=== PATIENT | male | born 1995 | race Caucasian/White ===

== ENCOUNTER 2017-03-09 12:45 | Emergency (ER) ==
[2017-03-09 12:48] VITALS: BP 117/74; TEMP 97.9; BMI 17.8
[2017-03-09] MEDS ORDERED: SILVADENE CREAM TP STA (13:04)
[2017-03-09] MEDS ORDERED: TORADOL IM STA (13:04)
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
== END 2017-03-09 13:39 | disposition home or self-care (01) ==
LOC: ED 12:45
DX: T24.202A Burn of second degree of unspecified site of left lower limb, except ankle and foot, initial encounter (principal); T24.201A Burn of second degree of unspecified site of right lower limb, except ankle and foot, initial encounter; X10.1XXA Contact with hot food, initial encounter
CPT/HCPCS: 96372; 99282

== ENCOUNTER 2017-04-09 07:26 | Day surgery (SDC) ==
[~2017-04-09 07:26] MED LIST: LIDOCAINE 1% 20 ML MDV ONE; LIDOCAINE 1% 2ML (SURGERY ONLY) ID ONE
[2017-04-09] MEDS ORDERED: DIPRIVAN 20 ML VIAL IVP ONE (09:20)
[2017-04-09] MEDS ORDERED: SUBLIMAZE ONE (09:20)
[2017-04-09] MEDS ORDERED: VERSED ONE (09:20)
[2017-04-09] MEDS ORDERED: LIDOCAINE 1%-EPI 1:100,000 10 ML (SURGERY) INJ ONE (09:39)
[2017-04-09] MEDS ORDERED: NEOSPORIN OINT 0.9 GM PACKET TP ONE (09:41)
[2017-04-09] MEDS ORDERED: GELFOAM SIZE 50 TP ONE (09:42)
[2017-04-09] MEDS ORDERED: TYLENOL #3 TAB PO ONE (10:22)
[2017-04-09 11:21] VITALS: BP 102/75; TEMP 97.3
--- NOTE | 2017-04-10 12:58 | OP ---
PREOPERATIVE DIAGNOSIS: RIGHT TYMPANIC MEMBRANE PERFORATION POSTOPERATIVE DIAGNOSIS: RIGHT TYMPANIC MEMBRANE PERFORATION OPERATION: RIGHT TYPE 1 TYMPANOPLASTY PROCEDURE: The patient was taken to surgery, placed on the table and general anesthesia was administered. Left ear was inspected and noticed an anterior superior perforation which is not significant. Attention was then turned to the right where the ear was prepped and draped in the usual manner. 1% Xylocaine to 100,000 Epinephrine was injected into the external ear canal. Xylocaine and Epinephrin was injected in the tragus. A tragal perichondrial graft was obtained. The cartilage was placed back in the graft site and incision closed using interrupted 6-0 Chromic suture. The edges of the perforation were freshened up with a straight pick and then a tympanomeatal flap was created between approximately 9 and 3 o'clock. Dissection was carried down the annulus and the annulus was elevated. The middle ear was filled with pledgets of Gelfoam. The perichondrial graft was cut to proper size and laid on the tympanic membrane. The annulus was placed back in its anatomical position and the graft was tucked up against the surface of the drum. Gelfoam was placed against the surface of the drum. Ear canal was filled with antibiotic ointment and the patient was extubated and return the recovery room in satisfactory condition. MARIO
== END 2017-04-09 11:30 | disposition home or self-care (01) ==
LOC: SURG 07:26
PROVIDERS: ATTEND Otolaryngology
DX: H72.91 Unspecified perforation of tympanic membrane, right ear (principal); F17.210 Nicotine dependence, cigarettes, uncomplicated

== ENCOUNTER → 2017-05-06 | Outpatient (POV) | LOC: OUTPT 00:01 | PROVIDERS: ATTEND Otolaryngology | DX: H72.90 Unspecified perforation of tympanic membrane, unspecified ear (principal); H69.90 Unspecified Eustachian tube disorder, unspecified ear; H91.91 Unspecified hearing loss, right ear; Z96.22 Myringotomy tube(s) status ==

== ENCOUNTER → 2017-05-13 | Outpatient (POV) | LOC: OUTPT 00:01 | PROVIDERS: ATTEND Otolaryngology | DX: H69.90 Unspecified Eustachian tube disorder, unspecified ear (principal) ==

== ENCOUNTER 2018-02-16 17:14 | Emergency (ER) ==
[2018-02-16 17:23] VITALS: BP 124/87; TEMP 99.2; BMI 16.9
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
--- NOTE | 2018-02-16 18:04 | CT ---
Exam: CT of the abdomen and pelvis without contrast History: Abdominal pain Technique: [address] of the abdomen and pelvis without intravascular contrast FINDINGS: The lung bases are clear. No significant liver abnormality. The adrenals, pancreas and spl een are unremarkable. The stomach and hiatus are unremarkable.Prior cholecystectomy. Kidneys and prox imal collecting system are unremarkable. The appendix is not seen. Bowel loops demonstrate normal wyatt iber. No inflamatory change seen in the mesentery or retroperitoneum. Vascular structures appear norm al by noncontrast CT. Hardware of the right servando pelvis from prior post traumatic fixation. Hardware of the right hip. No acute bony abnormalities are seen. Normal urinary bladder. Normal pelvic bowel loops. No pelvic f at inflammation or free pelvic fluid. Impression: 1. No inflammatory process, bowel or urinary obstruction is seen. No acute findings of the abdomen or pelvis.
--- NOTE | 2018-02-16 19:01 | CT ---
Exam: CT of the abdomen and pelvis with contrast History: Right lower quadrant pain Technique: [address] of the abdomen and pelvis following intravenous contrast FINDINGS: The lung bases are clear. No significant liver abnormality. The adrenals, pancreas and spl een are unremarkable. The stomach and hiatus are unremarkable.Prior cholecystectomy. Kidneys and prox imal collecting system are unremarkable. Vascular structures appear normal. The appendix is normal. Bowel loops demonstrate normal caliber. No inflamatory change seen in the mesentery or retroperitoneu m. No pelvic fat inflammation. Normal pelvic bowel loops. Normal urinary bladder. Right hip and pelvi s hardware is technically inhibiting. Impression: 1. No inflammatory process, bowel or urinary obstruction is seen. No acute findings of the abdomen or pelvis. No interval change from earlier same day at 1739 hours.
== END 2018-02-16 19:42 | disposition home or self-care (01) ==
LOC: ED 17:14
DX: R10.31 Right lower quadrant pain (principal)
CPT/HCPCS: 36415; 80053; 81001; 82150; 83690; 85025; 87086; 99283

== ENCOUNTER 2019-01-21 09:00 | Outpatient (RCR) ==
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
--- NOTE | 2019-01-08 10:22 | RS.OPPTDN ---
Subjective Date of Note: 01/08/19 Visit #: 2 Number of visits approved by Insurance: na Date of Evaluation: 01/07/19 Payer Source: Insurance Treatment Diagnosis: Right knee pain, ITB syndrome Current Subjective/complaints:: Patient enters clinic with antalgic gait today, with elevated pain . *Precautions: . Pain Assessment - Pain Description Pain Location: R IT band Pain Description: Dull, Aching Current Pain Intensity: 7/10 - Treatment Modality: Ultrasound Parameters/Method Applied: 10 mins. @ 1.5 w/cm2 to R IT band. - Heat/Cryotherapy Treatment: Hot Pack (20 mins. prior to US and ex) Interventions - Exercise/Activities/Manual Therapy Exercises/Activities: 20 mins. instructed in sidelying clam shell motion and side-lying hip abduction with knee flexed.IT band stretches in sidelying ( gravity -assisted ).Reviewed HEP established by the supervising PT. Total minutes of Exercise: 20 Manual Therapy: NA Total minutes of Manual Therapy: 0 HOME EXERCISE PROGRAM: IT band stretching against the wall and standing with lateral flexion. - Charges Timed Code Treatment Minutes: 30 Total Treatment Time: 50 Procedures billed for this date of service:: hp,US,ex 1 Assessment: Patient tolerates the sidelying exercises without elevated pain , but fatigues easily.He does have increased pain with terminal knee extension today in open or closed chain .He is attentive to recommendations for exercises and pain management.We discussed if the standing exercises elevate the pain , modify them ,try sitting or sidelying. Patient Education: Education of diagnosis, Body/Joint mechanics, Home Exercise Program, Home Safety, Activity Modification, Education of Plan of Care Patient demonstrates compliance with HEP?: Yes Short Term Goals Goal #1: Pt independent with initial HEP. Goal to be met by: 01/21/19 Progress towards Goal:: Progressing Goal #2: Pt to ambulate short distances with minimal gait deviation. Goal to be met by: 01/21/19 Goal #3: Pain with Right knee AROM decreased to minimal. Goal to be met by: 01/21/19 Goal #4: Right hip abductor strength improved to 4+/5 Goal to be met by: 01/21/19 Clerk Typist Goals Goal #1: Pt knows HEP and to continue ex's to maintain functional level at D/C. Goal to be met by: 02/16/19 Progress towards goal: Progressing Goal #2: Score on LE functional scale improved to 55/80. Goal to be met by: 02/16/19 Goal #3: Pt to amb. community distances with min. pain or gait deviation. Goal to be met by: 02/16/19 Goal #4: Pt able to perform ADL's and work activities with minimal right knee pain. Goal to be met by: 02/16/19 Plan Dates of Clerk Typist Goals: 02/16/19 Expiration date of current Insurance Approval:: na PLAN: Cont. skilled PT to reduce R hip/LE pain, reduce symptoms of ITB syndrome.
--- NOTE | 2019-01-12 12:01 | RS.OPPTDN ---
Subjective Date of Note: 01/12/19 Visit #: 3 Number of visits approved by Insurance: na Date of Evaluation: 01/07/19 Payer Source: Insurance Treatment Diagnosis: Right knee pain, ITB syndrome Current Subjective/complaints:: Patient reports pain at the lateral right knee joint with weight-bearing and with end range flexion. *Precautions: . Pain Assessment - Pain Description Pain Location: right knee, lateral to joint Current Pain Intensity: mod to high with weight-bearing - Treatment Modality: Ultrasound Parameters/Method Applied: [id number] at 1.5w/cm2 to the lateral right knee joint and along the distal ITB. Patient Position: Supine - Heat/Cryotherapy Treatment: Hot Pack ([id number] to the right knee prior to US and EX. Patient in supine. ), Cryotherapy (Ended with 12mins CP to the right lateral knee joint. Patient in supine. ) Interventions - Exercise/Activities/Manual Therapy Exercises/Activities: Patient assisted with hamsting, ITB and piriformis stretching. Then ABS for right knee flexion and hip flexor stretch with LE off table edge. Total minutes of Exercise: 12mins Manual Therapy: Deep tissue massage at the inserstion of the right vastus lateralis and along distal ITB. Total minutes of Manual Therapy: 10mins HOME EXERCISE PROGRAM: IT band stretching against the wall and standing with lateral flexion. - Objective Findings Observations,measurements,etc.: Patient demos marked hamstring tightness right LE and a significant gait dev due to pain with weight-bearing. - Charges Timed Code Treatment Minutes: 32mins Total Treatment Time: 59mins Procedures billed for this date of service:: HP, US, EX Assessment: Patients pain is aggravated with EX and MT, but improves following CP. Patient demos significant tenderness with mod palpation and will need to gently work on flexibility exercises. Patient Education: Body/Joint mechanics, Home Exercise Program, Home Safety, Activity Modification Patient demonstrates compliance with HEP?: Yes Short Term Goals Goal #1: Pt independent with initial HEP. Goal to be met by: 01/21/19 Progress towards Goal:: Progressing Goal #2: Pt to ambulate short distances with minimal gait deviation. Goal to be met by: 01/21/19 Goal #3: Pain with Right knee AROM decreased to minimal. Goal to be met by: 01/21/19 Goal #4: Right hip abductor strength improved to 4+/5 Goal to be met by: 01/21/19 Hr Associate Goals Goal #1: Pt knows HEP and to continue ex's to maintain functional level at D/C. Goal to be met by: 02/16/19 Progress towards goal: Progressing Goal #2: Score on LE functional scale improved to 55/80. Goal to be met by: 02/16/19 Goal #3: Pt to amb. community distances with min. pain or gait deviation. Goal to be met by: 02/16/19 Goal #4: Pt able to perform ADL's and work activities with minimal right knee pain. Goal to be met by: 02/16/19 Plan Dates of Hr Associate Goals: 02/16/19 Expiration date of current Insurance Approval:: 02/16/19 PLAN: Continue modalities and progressive exercise to reduce pain and improve patients functional ambulation.
--- NOTE | 2019-01-14 10:11 | RS.OPPTDN ---
Subjective Date of Note: 01/14/19 Visit #: 4 Number of visits approved by Insurance: na Date of Evaluation: 01/07/19 Payer Source: Insurance Treatment Diagnosis: Right knee pain, ITB syndrome Current Subjective/complaints:: Patient enters clinic with antalgic gait , reports hurting alot this morning. *Precautions: . Pain Assessment - Pain Description Pain Location: R knee,lateral aspect Pain Description: Sharp, Dull, Aching, Chronic Current Pain Intensity: 5-6/10 - Treatment Modality: Ultrasound Parameters/Method Applied: 10 mins. @ 1.5 w/cm2 to lateral aspect of knee /IT band - Heat/Cryotherapy Treatment: Hot Pack (20 mins. prior to US and manual therapy) Interventions - Exercise/Activities/Manual Therapy Exercises/Activities: Patient assisted with knee flex/extension intermittently during manual therapy. Total minutes of Exercise: 5 Manual Therapy: 30 mins. Deep tissue massage to R lateral thigh/IT band. Total minutes of Manual Therapy: 30 HOME EXERCISE PROGRAM: IT band stretching against the wall and standing with lateral flexion. - Charges Timed Code Treatment Minutes: 30 Total Treatment Time: 55 Procedures billed for this date of service:: hp,US,manual 2 Assessment: Patient reports minimal relief from therapy at this time .He has crepitus present with passive or active knee motion.The patella is difficult to mobilize ,and reports increased pain with attempted glides. Patient Education: Education of diagnosis, Body/Joint mechanics, Home Exercise Program, Home Safety, Activity Modification, Education of Plan of Care Patient demonstrates compliance with HEP?: Yes Short Term Goals Goal #1: Pt independent with initial HEP. Goal to be met by: 01/21/19 Progress towards Goal:: Progressing Goal #2: Pt to ambulate short distances with minimal gait deviation. Goal to be met by: 01/21/19 Goal #3: Pain with Right knee AROM decreased to minimal. Goal to be met by: 01/21/19 Goal #4: Right hip abductor strength improved to 4+/5 Goal to be met by: 01/21/19 Half-Way Goals Goal #1: Pt knows HEP and to continue ex's to maintain functional level at D/C. Goal to be met by: 02/16/19 Progress towards goal: Progressing Goal #2: Score on LE functional scale improved to 55/80. Goal to be met by: 02/16/19 Goal #3: Pt to amb. community distances with min. pain or gait deviation. Goal to be met by: 02/16/19 Goal #4: Pt able to perform ADL's and work activities with minimal right knee pain. Goal to be met by: 02/16/19 Plan Dates of Half-Way Goals: 02/16/19 Expiration date of current Insurance Approval:: na PLAN: Cont. skilled PT to reduce/eliminate R knee pain.
--- NOTE | 2019-01-21 10:48 | RS.OPPTDN ---
Subjective Date of Note: 01/21/19 Visit #: 5 Number of visits approved by Insurance: na Date of Evaluation: 01/07/19 Payer Source: Insurance Treatment Diagnosis: Right knee pain, ITB syndrome Current Subjective/complaints:: Reports right knee/thigh pain is much better. States he has soreness but is walking with little to no pain or limp. Mild pain with no increase during short distance ambulation. *Precautions: . Pain Assessment - Pain Description Pain Location: right lateral knee and distal ITB Current Pain Intensity: mild - Treatment Modality: Ultrasound Parameters/Method Applied: [id number] at 1.5w/cm2 to the right lateral knee joint and the distal ITB. Patient Position: Supine - Heat/Cryotherapy Treatment: Hot Pack ([id number] to the right knee and lateral thigh prior US and MT. Patient in supine. ) Interventions - Exercise/Activities/Manual Therapy Exercises/Activities: Patient assisted with knee long stretches of the ITB in different positions. Passive right knee flexion and extension. Quad sets, SLR, and SLR/VMO for HEP. Total minutes of Exercise: 10mins Manual Therapy: 14mins Deep tissue massage to R lateral thigh/IT band. Total minutes of Manual Therapy: 14mins HOME EXERCISE PROGRAM: IT band stretching against the wall and standing with lateral flexion. - Charges Timed Code Treatment Minutes: 36mins Total Treatment Time: 51mins Procedures billed for this date of service:: HP, US, MT Assessment: Patient reporting significant improvement in pain and with his ambulation. He is able to amb short distances with only slight gait deviation and mild discomfort and no increase. Patient Education: Body/Joint mechanics, Home Exercise Program Patient demonstrates compliance with HEP?: Yes Short Term Goals Goal #1: Pt independent with initial HEP. Goal to be met by: 01/21/19 Progress towards Goal:: Met Goal #2: Pt to ambulate short distances with minimal gait deviation. Goal to be met by: 01/21/19 Progress towards Goal:: Met Goal #3: Pain with Right knee AROM decreased to minimal. Goal to be met by: 01/21/19 Progress towards Goal:: Met Goal #4: Right hip abductor strength improved to 4+/5 Goal to be met by: 01/21/19 Progress towards Goal:: Progressing Bobbin Presser Goals Goal #1: Pt knows HEP and to continue ex's to maintain functional level at D/C. Goal to be met by: 02/16/19 Progress towards goal: Progressing Goal #2: Score on LE functional scale improved to 55/80. Goal to be met by: 02/16/19 Progress towards goal: Progressing Goal #3: Pt to amb. community distances with min. pain or gait deviation. Goal to be met by: 02/16/19 Progress towards goal: Progressing Goal #4: Pt able to perform ADL's and work activities with minimal right knee pain. Goal to be met by: 02/16/19 Progress towards goal: Progressing Plan Dates of Bobbin Presser Goals: 02/16/19 Expiration date of current Insurance Approval:: 02/16/19 PLAN: Patient to be seen next week for treatment to reduce pain and improve gait pattern. Prepare for discharge with HEP.
== END 2019-01-26 23:59 ==
PROVIDERS: ATTEND Physician Assistant
DX: M76.31 Iliotibial band syndrome, right leg (principal)